=== PATIENT | female | born 1950 | race Caucasian/White ===

== ENCOUNTER 2016-10-19 09:33 | Day surgery (SDC) | payer OTHER ==
[~2016-10-19] VITALS: Ht 162.6 cm; Wt 94.0 kg
[~2016-10-19 09:33] MED LIST: Aspirin E.C. PO; FARXIGA5 MG PO; FENOFIBRATE134 M1 PO; Flexeril PO; LASIX20 MG PO; LISINOPRIL40 MG PO; Lasix PO; METFORMIN HCL1000 MG PO; MOBIC7.5 MG PO; NORVASC10 MG PO; Norvasc PO; OMEPRAZOLE20 MG PO; Percocet 5/325,Endoc PO; PriLOSEC PO; TYLENOL EXTRA500 MG PO; Tylenol Regular Stre PO; ULTRAM50 MG PO; Ultram PO; VITAMIN D22000 UNIT PO; Vitamin D PO; ZETIA10 MG PO; Zestril,Prinivil PO; Zocor PO
[2016-10-19 10:10] VITALS: BP 155/73
[2016-10-19 10:18] LABS: POINT-OF-CARE METER ID UU14174212
[2016-10-19 14:39] LABS: POINT-OF-CARE METER ID UU13113675
[2016-10-19 15:25] VITALS: BP 140/65
[2016-10-19 16:13] VITALS: BP 159/70
== END 2016-10-19 16:25 | disposition home or self-care (01) ==
LOC: SDC 09:33
PROVIDERS: Neurological Surgery
PROC: 0SB20ZZ Excision of Lumbar Vertebral Disc, Open Approach (ICD-10-PCS; principal; 2016-10-19)
DX: M51.06 Intervertebral disc disorders with myelopathy, lumbar region (principal); M54.16 Radiculopathy, lumbar region; Z98.1 Arthrodesis status; E66.9 Obesity, unspecified; Z68.35 Body mass index [BMI] 35.0-35.9, adult; I10 Essential (primary) hypertension; E11.9 Type 2 diabetes mellitus without complications; K21.9 Gastro-esophageal reflux disease without esophagitis; Z79.84 Long term (current) use of oral hypoglycemic drugs; Z83.3 Family history of diabetes mellitus
CPT/HCPCS: 72100; 76000; 82948; J0330; J0690; J1100; J1170; J1885; J2250; J2405; J3010

== ENCOUNTER 2017-03-08 06:34 | Inpatient (IN) | payer OTHER ==
[~2017-03-08] VITALS: Ht 162.6 cm; Wt 90.8 kg
[~2017-03-08 06:34] MED LIST changes: +PRILOSEC20 MG PO; +ZESTRIL40 MG PO
[2017-03-08 07:12] LABS: POINT-OF-CARE METER ID UU13113694
[2017-03-08 13:26] LABS: POINT-OF-CARE METER ID UU13113675
[2017-03-08 14:55] VITALS: BP 134/63
[2017-03-08 20:03] VITALS: BP 126/68
[2017-03-08 23:35] VITALS: BP 133/63
[2017-03-09 07:59] VITALS: BP 125/78
[2017-03-09 16:51] VITALS: BP 149/70
[2017-03-09 16:54] LABS: POINT-OF-CARE METER ID UU14149397
[2017-03-10 00:04] VITALS: BP 129/58
[2017-03-10 08:41] VITALS: BP 109/52
[2017-03-10 10:16] LABS: C DIFF TOXIN NEGATIVE (NEGATIVE)
[2017-03-10 10:18] LABS: PROBE CHECK PASS; SPECIMEN PROCESSING CONTROL PASS
[2017-03-10 16:12] VITALS: BP 145/66
[2017-03-10 22:25] LABS: POINT-OF-CARE METER ID UU14188577
[2017-03-11 00:30] VITALS: BP 122/57
[2017-03-11] MEDS ORDERED: CYCLOBENZAPRINE10 MG PO (07:21)
[2017-03-11] MEDS ORDERED: HYDROCODON-ACE1 EAC7 PO (07:21)
[2017-03-11 07:55] VITALS: BP 125/61
== END 2017-03-11 10:42 | disposition home or self-care (01) | DRG 460 ==
LOC: 2SOUTH 06:34 → 3EAST 06:34 → 2SOUTH 09:43 → ENRESERV 12:20 → 3EAST 14:10
PROVIDERS: Neurological Surgery; Physician Assistant
DX: M51.16 Intervertebral disc disorders with radiculopathy, lumbar region (principal); M43.16 Spondylolisthesis, lumbar region; E11.9 Type 2 diabetes mellitus without complications; I10 Essential (primary) hypertension; K21.9 Gastro-esophageal reflux disease without esophagitis; M19.90 Unspecified osteoarthritis, unspecified site; E78.2 Mixed hyperlipidemia; E55.9 Vitamin D deficiency, unspecified; G89.29 Other chronic pain; E66.9 Obesity, unspecified; Z68.38 Body mass index [BMI] 38.0-38.9, adult; Z83.3 Family history of diabetes mellitus; Z98.1 Arthrodesis status
CPT/HCPCS: 72100; 76000; 82948; 86900; 86901; 87493; 87506; 94799; J0131; J0330; J0690; J1170; J1580; J1885; J2250; J2405; J3010; J3370; J3480